=== PATIENT | female | born 1960 | race Hispanic/Latino ===

== ENCOUNTER 2021-07-11 03:28 | Inpatient (IN) | payer OTHER ==
--- OUTSIDE RECORDS SUMMARY | 2021-07-11 03:31 | XMS REPORT | Continuity of Care Document ---
:1960 Author Organization [facility] t Address [address] [place] [address] Care Team Providers Name Role Phone Bubba CARCAMO Attending Clinician Unavailable Payers Payer Name Policy Type Policy Number Effective Date Expiration Date Nicole agarwal [employer] [id number] 2020 00:00:00 SELECT Problems This patient has no known problems. Allergies, Adverse Reactions, Alerts Allergy Allergy Status Severity Reaction(s) Onset Inactive Treating Comm ents Source Name Type Date Date Clinician NO KNOWN Drug Active [facility] Medications This patient has no known medications. Procedures This patient has no known procedures. Encounters Start End Encounter Admission Attending Care Care Encounter Source Date/Time Date/Time Type Type Clinicians Facility Department ID 2020-08-06 2020-08-06 [facility] [id number] [facility] 09:50:00 09:50:00 [facility] [id number] [facility] 2020-08-06 2020-08-06 Outpatient Antonio CARCAMO [facility] [id number] Univers 09:50:00 09:50:00 [facility] 2020-06-10 2020-06-10 Outpatient [facility] [id number] Univers 15:15:00 15:15:00 [id number] [facility] Results This patient has no known results.
[2021-07-11] MEDS ORDERED: ONDANSETRON 4 MG/2 ML VIAL ONE (04:04)
[2021-07-11] MEDS ORDERED: HYDROMORPHONE HCL 1 MG/ML INJ ONE (04:04)
[2021-07-11 04:08] LABS: Absolute Lymphocytes (CBC) 2.7 K/uL (0.7-4.9); Hematocrit 40.6 % (36.0-45.0); Lymphocytes % 33.6 % (15.3-44.8); MPV 6.8 fL (7.6-11.3); RBC Red Blood Cell Count 4.37 M/uL (3.86-4.86)
[2021-07-11 04:30] LABS: Albumin 3.4 g/dL (3.4-5.0); Bilirubin Direct 0.2 mg/dL (0-0.2); Bilirubin Total 0.4 mg/dL (0.2-1.0); Potassium 3.3 mmol/L (3.5-5.1); Protein, Total 7.2 g/dL (6.4-8.2); Troponin High Sensitivity 6.2 pg/mL (<58.9)
[2021-07-11 06:16] LABS: Urine Blood Negative (Negative); Urine Glucose Negative (Negative); Urine Protein Negative (Negative)
[2021-07-11 06:27] LABS: Urine Bacteria <20 /HPF (<20); Urine RBC <5 /HPF (NONE SEEN)
[2021-07-11] MEDS ORDERED: PIPERACIL/TAZO 3.375 GM VIAL IV ONE (06:37)
[2021-07-11] MEDS ORDERED: NA CHLORIDE 0.9% 100 ML IV ONE (06:38)
--- NOTE | 2021-07-11 06:44 | ER ---
Nurse's Notes [facility] Name: Zoë Vieira Age: 61 yrs Sex: Female : 1960 Arrival Date: 07/11/2021 Time: 03:29 Bed 17 Private MD: Diagnosis: Acute cholecystitis Presentation: 07/11 03:45 Chief complaint: Patient states: C/o sharp abdominal pain, N/V since midnight. ll3 Coronavirus screen: Vaccine status: Patient reports receiving the 2nd dose of the covid vaccine. Ebola Screen: No symptoms or risks identified at this time. Initial Sepsis Screen: Does the patient meet any 2 criteria? No. Patient's initial sepsis screen is negative. Does the patient have a suspected source of infection? No. Patient's initial sepsis screen is negative. Risk Assessment: Do you want to hurt yourself or someone else? Patient reports no desire to harm self or others. Onset of symptoms was July 10, 2021 at 00:00. 03:45 Method Of Arrival: Ambulatory 3 03:45 Acuity: ANOOP 3 ll3 Triage Assessment: 03:47 General: Appears in no apparent distress. uncomfortable, Behavior is calm, cooperative. ll3 Pain: Complains of pain in abdomen Pain currently is 10 out of 10 on a pain scale. Quality of pain is described as stabbing, Pain began 4 hours ago. Is continuous. Neuro: Level of Consciousness is awake, alert, obeys commands, Oriented to person, place, time, situation. Cardiovascular: Patient's skin is warm and dry. Respiratory: Respiratory effort is even, unlabored, Respiratory pattern is regular, symmetrical. GI: Abdomen is round distended, Last BM was July 10, 2021. Bowel sounds present X 4 quads. Abd is soft and non tender X 4 quads. Reports lower abdominal pain, upper abdominal pain, indigestion, nausea, vomiting. Derm: Skin is pink, warm \T\ dry. Historical: - Allergies: 03:47 Codeine; ll3 - Home Meds: 03:47 levothyroxine 175 mcg oral tab [Active]; simvastatin 40 mg Oral tab 1 tab once daily ll3 [Active]; gabapentin 100 mg oral tab twice a day [Active]; - PMHx: 03:47 High Cholesterol; Hypothyroidism; ll3 - PSHx: 03:47 None; ll3 - Immunization history:: Client reports receiving the 2nd dose of the Covid vaccine. - Social history:: Smoking status: Patient denies any tobacco usage or history of. Screenin:52 Abuse screen: Denies threats or abuse. Nutritional screening: No deficits noted. ll3 Tuberculosis screening: No symptoms or risk factors identified. Fall Risk IV access (20 points). Mental Status- Oriented to own ability (0 pts). Total Tang Fall Scale indicates No Risk (0-24 pts). Assessment: 03:45 General: See triage assessment. ll3 04:15 Reassessment: Patient aware of the need for a urine sample. al4 04:37 Reassessment: Patient is alert, oriented x 3, equal unlabored respirations, skin al4 warm/dry/pink. Patient sleeping but easily arousable. States the pain medication helped the pain enough for her to sleep. at bedside. 05:17 Reassessment: Patient is alert, oriented x 3, equal unlabored respirations, skin al4 warm/dry/pink. Patient is resting comfortably. Denies pain. Warm blanket given. . 06:02 Reassessment: Patient is alert, oriented x 3, equal unlabored respirations, skin al4 warm/dry/pink. 06:05 Reassessment: patient ambulated to restroom with assistance. al4 07:03 Reassessment: Patient is alert, oriented x 3, equal unlabored respirations, skin al4 warm/dry/pink. Vital Signs: 03:45 BP 127 / 109; Pulse 61; Resp 18; Temp 97.7(TE); Pulse Ox 100% on R/A; Weight 72.12 kg ll3 (R); Height 5 ft. 4 in. (162.56 cm) (R); Pain 10/10; 04:00 BP 137 / 74; Pulse 50; Resp 16; Pulse Ox 96% on R/A; Pain 7/10; al4 05:18 BP 118 / 73; Pulse 54 MON; Resp 16 S; Pulse Ox 94% on R/A; al4 06:32 BP 137 / 68; Pulse 50; Resp 16; Pulse Ox 97% on R/A; ll3 07:03 BP 120 / 82; Pulse 52; Resp 16 S; Pulse Ox 100% on R/A; al4 03:45 Body Mass Index 27.29 (72.12 kg, 162.56 cm) ll3 ED Course: 03:29 Patient arrived in ED. kc5 03:45 Corinne Sullivan MD is Attending Physician. sp3 03:47 Triage completed. ll3 03:47 Arm band placed on. ll3 03:51 Inserted saline lock: 20 gauge in left antecubital area, using aseptic technique. Blood ds4 collected. 03:52 Patient has correct armband on for positive identification. Placed in gown. Bed in low ll3 position. Call light in reach. Side rails up X 1. 04:10 Basic Metabolic Panel Sent. ll3 04:39 Placido Clemente is Primary Nurse. al4 04:39 Pulse ox on. NIBP on. al4 05:14 CT Abd/Pelvis - IV Contrast Only In Process Unspecified. EDMS 06:43 Jaida Singletary MD is Hospitalizing Provider. sp3 06:50 Surgeon paged at 06:27. eb 06:54 Surgeon paged at 06:54. eb 09:03 Primary Nurse role handed off by Placido Clemente eb 18:37 No provider procedures requiring assistance completed. Patient admitted, IV remains in beal place. Administered Medications: 04:08 Drug: Dilaudid (HYDROmorphone) 1 mg Route: IVP; Site: left antecubital; ll3 05:19 Follow up: Response: No adverse reaction; RASS: Alert and Calm (0) al4 04:08 Drug: Zofran (Ondansetron) 4 mg Route: IVP; Site: left antecubital; ll3 05:19 Follow up: Response: No adverse reaction al4 06:45 Drug: Zosyn (piperacillin-tazobactam) 3.375 grams Route: IVPB; Infused Over: 60 mins; ll3 Site: left antecubital; 07:22 Follow up: IV Status: Completed infusion beal Outcome: 06:43 Decision to Hospitalize by Provider. sp3 18:37 Admitted to Med/surg beal 18:37 Condition: good 18:37 Instructed on the need for admit. 18:38 Patient left the ED. beal Signatures: Dispatcher [employer] EDMS Donavon Mccray ds4 Lakeisha Jarrett eb Corinne Sullivan MD MD sp3 Ailyn Dickson RN RN ll3 Chikis Riley kc5 Placido Clemente al4 Au-StagerJudith RN RN beal Corrections: (The following items were deleted from the chart) 04:39 04:37 Reassessment: Patient is alert, oriented x 3, equal unlabored respirations, skin al4 warm/dry/pink. Patient sleeping but easily arousable. States the pain medication helped the pain enough for her to sleep.. al4
--- NOTE | 2021-07-11 06:44 | EDPHYS ---
Physician Documentation [facility] Name: Zoë Vieira Age: 61 yrs Sex: Female : 1960 Arrival Date: 07/11/2021 Time: 03:29 Bed 17 Private MD: ED Physician Corinne Sullivan HPI: 07/11 03:54 This 61 yrs old Female presents to ER via Ambulatory with complaints of sp3 Abdominal Pain. 03:54 Is a 1-year-old female with history of hyperlipidemia, hypothyroidism presents to the [facility] ED for a 4-hour history of epigastric pain radiating to the right upper quadrant which started approximately midnight associated with nausea and one episode of emesis. Patient is a patient of Dr. Singletary, has had no surgical procedures in the abdomen and chest, and on review of systems denies headache, neck pain, chest pain, shortness of breath, diarrhea, extremity pain, syncope, neuro symptoms, travel history, known sick contacts, change in medications, or any other symptoms at this time. Pain is described as sharp and waxing and waning and continues to be present in the ED currently.. Historical: - Allergies: 03:47 Codeine; ll3 - Home Meds: 03:47 levothyroxine 175 mcg oral tab [Active]; simvastatin 40 mg Oral tab 1 tab once daily ll3 [Active]; gabapentin 100 mg oral tab twice a day [Active]; - PMHx: 03:47 High Cholesterol; Hypothyroidism; ll3 - PSHx: 03:47 None; ll3 - Immunization history:: Client reports receiving the 2nd dose of the Covid vaccine. - Social history:: Smoking status: Patient denies any tobacco usage or history of. ROS: 03:57 Constitutional: Negative for fever, chills, and weight loss, Eyes: Negative for injury, sp3 pain, redness, and discharge, ENT: Negative for injury, pain, and discharge, Neck: Negative for injury, pain, and swelling, Cardiovascular: Negative for chest pain, palpitations, and edema, Respiratory: Negative for shortness of breath, cough, wheezing, and pleuritic chest pain, Back: Negative for injury and pain, MS/Extremity: Negative for injury and deformity, Skin: Negative for injury, rash, and discoloration, Neuro: Negative for headache, weakness, numbness, tingling, and seizure, Psych: Negative for depression, anxiety, suicide ideation, homicidal ideation, and hallucinations, Allergy/Immunology: Negative for hives, rash, and allergies, Endocrine: Negative for neck swelling, polydipsia, polyuria, polyphagia, and marked weight changes, Hematologic/Lymphatic: Negative for swollen nodes, abnormal bleeding, and unusual bruising. 03:57 All other systems are negative. Exam: 03:57 Constitutional: This is a well developed, well nourished patient who is awake, alert, sp3 and in no acute distress. Head/Face: Normocephalic, atraumatic. Eyes: Pupils equal round and reactive to light, extra-ocular motions intact. Lids and lashes normal. Conjunctiva and sclera are non-icteric and not injected. Cornea within normal limits. Periorbital areas with no swelling, redness, or edema. Neck: Trachea midline, no thyromegaly or masses palpated, and no cervical lymphadenopathy. Supple, full range of motion without nuchal rigidity, or vertebral point tenderness. No Meningismus. Chest/axilla: Normal chest wall appearance and motion. Nontender with no deformity. No lesions are appreciated. Cardiovascular: Regular rate and rhythm with a normal S1 and S2. No gallops, murmurs, or rubs. Normal PMI, no JVD. No pulse deficits. Respiratory: Lungs have equal breath sounds bilaterally, clear to auscultation and percussion. No rales, rhonchi or wheezes noted. No increased work of breathing, no retractions or nasal flaring. Skin: Warm, dry with normal turgor. Normal color with no rashes, no lesions, and no evidence of cellulitis. MS/ Extremity: Pulses equal, no cyanosis. Neurovascular intact. Full, normal range of motion. Neuro: Awake and alert, GCS 15, oriented to person, place, time, and situation. Cranial nerves II-XII grossly intact. Motor strength 5/5 in all extremities. Sensory grossly intact. Cerebellar exam normal. Normal gait. Psych: Awake, alert, with orientation to person, place and time. Behavior, mood, and affect are within normal limits. 03:57 Abdomen/GI: Right upper quadrant pain as well as epigastric pain on palpation without peritoneal signs, rebound, or guarding. Bowel sounds are normal. Positive Colbert sign on exam.. 06:44 ECG was reviewed by the Attending Physician. EKG demonstrates sinus bradycardia at 50 sp3 bpm with normal intervals, normal axis, normal QRS, normal ST/T changes without evidence of ischemia. Vital Signs: 03:45 BP 127 / 109; Pulse 61; Resp 18; Temp 97.7(TE); Pulse Ox 100% on R/A; Weight 72.12 kg ll3 (R); Height 5 ft. 4 in. (162.56 cm) (R); Pain 10/10; 04:00 BP 137 / 74; Pulse 50; Resp 16; Pulse Ox 96% on R/A; Pain 7/10; al4 05:18 BP 118 / 73; Pulse 54 MON; Resp 16 S; Pulse Ox 94% on R/A; al4 06:32 BP 137 / 68; Pulse 50; Resp 16; Pulse Ox 97% on R/A; ll3 07:03 BP 120 / 82; Pulse 52; Resp 16 S; Pulse Ox 100% on R/A; al4 03:45 Body Mass Index 27.29 (72.12 kg, 162.56 cm) ll3 MDM: 03:45 Patient medically screened. sp3 03:58 Data reviewed: vital signs, nurses notes. ED course: [id number] female with sp3 abdominal pain. Differential diagnosis includes, cholelithiasis, pancreatitis, acute coronary syndrome, gastritis, nonspecific functional abdominal pain. Will differentiate with CT scan of the abdomen/pelvis, laboratory values, EKG, and administer pain and nausea medication for patient's symptoms. Disposition based on work-up and patient course.. 06:42 ED course: CT evidence of acute cholecystitis. Discussed with Dr. Singletary who wants sp3 patient admitted and the on-call surgeon consulted Dr. Schofield. Discussed with patient who is okay with the plan. Zosyn IV has been given. Patient to remain n.p.o. posted to Dr. Singletary's service.. 07/11 03:57 Order name: Basic Metabolic Panel sp3 07/11 03:57 Order name: CBC with Diff; Complete Time: 06:23 sp3 07/11 03:57 Order name: Hepatic Function; Complete Time: 06:23 sp3 07/11 03:57 Order name: Lipase; Complete Time: 06:23 sp3 02/04 03:57 Order name: UA MICROSCOPIC; Complete Time: 06:44 sp3 07/11 03:57 Order name: CT Abd/Pelvis - IV Contrast Only sp3 07/11 03:57 Order name: Troponin HS; Complete Time: 06:23 sp3 07/11 03:57 Order name: Basic Metabolic Panel; Complete Time: 06:23 EDMS 07/11 04:33 Order name: COVID-19 SARS RT PCR (Document "Date of Onset" if Symptomatic); Complete cs9 Time: 06:23 07/11 06:16 Order name: Urine Dipstick-Ancillary; Complete Time: 06:23 EDMS 07/11 11:22 Order name: Troponin High Sensitivity EDMS 07/11 11:25 Order name: US EDMS 07/11 11:44 Order name: Basic Metabolic Panel EDMS 07/11 03:57 Order name: IV Saline Lock; Complete Time: 03:59 sp3 07/11 03:57 Order name: Labs collected and sent; Complete Time: 04:00 sp3 07/11 03:57 Order name: Urine Dipstick-Ancillary (obtain specimen); Complete Time: 06:54 sp3 07/11 03:57 Order name: NPO; Complete Time: 04:10 sp3 07/11 03:57 Order name: EKG - Nurse/Tech; Complete Time: 04:10 sp3 07/11 06:40 Order name: NPO EDMS 07/11 12:17 Order name: Diet Clear Liquid; Complete Time: 12:18 beal 07/11 12:26 Order name: MRI EDMS 07/11 12:36 Order name: MRI EDMS Administered Medications: 04:08 Drug: Dilaudid (HYDROmorphone) 1 mg Route: IVP; Site: left antecubital; ll3 05:19 Follow up: Response: No adverse reaction; RASS: Alert and Calm (0) al4 04:08 Drug: Zofran (Ondansetron) 4 mg Route: IVP; Site: left antecubital; ll3 05:19 Follow up: Response: No adverse reaction al4 06:45 Drug: Zosyn (piperacillin-tazobactam) 3.375 grams Route: IVPB; Infused Over: 60 mins; ll3 Site: left antecubital; 07:22 Follow up: IV Status: Completed infusion beal Disposition Summary: 07/11/21 06:43 Hospitalization Ordered Hospitalization Status: Observation sp3 Provider: Jaida Singletary Condition: Stable sp3 Problem: new sp3 Symptoms: have improved sp3 Bed/Room Type: Standard sp3 Location: Telemetry/MedSurg (observation)(07/11/21 17:18) eb Room Assignment: 228(07/11/21 17:18) eb Diagnosis - Acute cholecystitis sp3 Forms: - Medication Reconciliation Form sp3 - SBAR form sp3 Signatures: Dispatcher [employer] EDMS Lakeisha Jarrett Setul, MD MD sp3 Ailyn Dickson RN RN 3 Placido Clemente Heather RN ha Corrections: (The following items were deleted from the chart) 05:15 03:58 URINALYSIS+U.LAB.BRZ ordered. EDMS EDMS 08:15 06:43 sp3 eb 09:20 06:43 Telemetry/MedSurg (observation) sp3 eb 09:20 08:15 208 eb eb 17:18 09:20 [facility] ER HOLD eb eb 17:18 09:20 ERHOLD- eb eb
--- NOTE | 2021-07-11 08:43 | HP ---
Date of Admission: 07/11/2021 WILTON/MODL Voice ID: [id number] MTDD
[2021-07-11] MEDS ORDERED: ONDANSETRON 4 MG/2 ML VIAL IV PRN (10:12)
[2021-07-11] MEDS ORDERED: SODIUM CHLORIDE 0.9% 10ML INJ IV PRN (10:12)
[2021-07-11] MEDS ORDERED: PANTOPRAZOLE 40 MG INJ IVP ONE (10:12)
[2021-07-11] MEDS ORDERED: MORPHINE 2 MG/ML SYR IV PRN (10:12)
[2021-07-11] MEDS: D5 0.9 NS 1,000 ML IV SCH (11:00)
[2021-07-11] MEDS: Levofloxacin 750mg IV 750 MG/150 ML BAG IV SCH (11:00)
[2021-07-11] MEDS ORDERED: Levofloxacin500mg IV 500 MG/100 ML BAG IV SCH (11:00)
[2021-07-11] MEDS ORDERED: PANTOPRAZOLE 40 MG INJ ONE (11:18)
[2021-07-11] MEDS ORDERED: Levofloxacin 750mg IV 750 MG/150 ML BAG IV ONE (11:19)
[2021-07-11] MEDS ORDERED: D5 0.9 NS 1,000 ML IV ONE (11:19)
--- NOTE | 2021-07-11 11:24 | RAD REPORT ---
EXAM DESCRIPTION: US - Abdomen Exam Limited - 07/11/2021 11:16 am CLINICAL HISTORY: abd pain COMPARISON: Abdomen Pelvis W Contrast dated 07/11/2021 FINDINGS: The gallbladder demonstrates shadowing gallstones. Pericholecystic fluid is present. The g allbladder wall is normal. The common bile duct is normal measuring 3 mm. The liver demonstrates no findings of intrahepatic biliary dilatation. The right kidney measures 10.7 cm. No hydronephrosis. IMPRESSION: Cholelithiasis. Pericholecystic fluid identified but no gallbladder wall thickening. Acu te cholecystitis can neither be confirmed nor excluded based on this exam.
[2021-07-11 11:44] LABS: Potassium 3.7 mmol/L (3.5-5.1)
--- NOTE | 2021-07-11 11:48 | RAD REPORT ---
EXAM DESCRIPTION: CT - Abdomen Pelvis W Contrast - 07/11/2021 6:29 am CLINICAL HISTORY: ABD PAIN COMPARISON: None. TECHNIQUE: CT ABDOMEN PELVIS WITH IV CONTRAST on 07/11/2021 3:57 AM COMMUNICATIONS TECHNOLOGIST This exam was performed according to our departmental dose-optimization program, which includes autom ated exposure control, adjustment of the mA and/or kV according to patient size and/or use of iterati ve reconstruction technique. FINDINGS: Lower lungs are clear. Abdomen: The liver is normal in appearance. There is no biliary dilatation. Gallbladder wall is minim ally thickened measuring up to 5 mm laterally. There is a small gallstone within the gallbladder. The pancreas and spleen are normal in appearance. The adrenal glands and kidneys are unremarkable. Abdominal aorta is normal in course and caliber without aneurysm. There is no free air. There is no r etroperitoneal adenopathy. Pelvis: There is no bowel obstruction. Urinary bladder is unremarkable. There is no free fluid. Uteru s is normal in size. Appendix is not well seen. Skeleton: There are no acute osseous findings. No suspicious bony lesions. IMPRESSION: Suspect acute cholecystitis. Electronically signed by: Antione Zheng MD 07/11/2021 6:07 AM COMMUNICATIONS TECHNOLOGIST Due to temporary technical issues with the PACS/Fluency reporting system, reports are being signed by the in house radiologists without review as a courtesy to insure prompt reporting. The interpreting radiologist is fully responsible for the content of the report.
--- NOTE | 2021-07-11 12:24 | RAD REPORT ---
EXAM DESCRIPTION: MRI - Lumbar Spine Patience Delgado - 07/11/2021 12:05 pm CLINICAL HISTORY: Right-sided radiculopathy COMPARISON: None. TECHNIQUE: Sagittal T1-weighted, T2-weighted and T2-STIR weighted sequences were obtained. Axial T1 -weighted and heavily T2-weighted sequenceswere obtained through the lumbar disc levels. FINDINGS: Lumbar bodies are normal in height and alignment. No suspicious marrow signal. No paraspin al masses. Conus is normal with no clumping or thickening of the cauda equina. T12-L1 level: No significant findings. L1-2 level: Right foraminal/lateral disc protrusion which contacts the exiting right L1 nerve root. N o central spinal stenosis. The left neural foramen is adequate. L2-3 level: Small broad-based disc bulge in conjunction with ligamentum flavum and facet hypertrophy is not result in any significant neural foraminal narrowing. No central spinal stenosis. L3-4 level: Broad-based disc bulge with ligamentum flavum and facet hypertrophy results in mild to mo derate right neural foraminal narrowing. Moderate central spinal stenosis. L4-5 level: Broad-based disc bulge with ligamentum flavum facet hypertrophy results in mild bilateral neural foraminal narrowing. No central spinal stenosis. L5-S1 level: No significant findings. IMPRESSION: Multilevel degenerative disc disease. Moderate central spinal stenosis is noted at L3-4 as result of a combination of degenerative changes. Mild to moderate right-sided neural foraminal norma rowing is noted at L3-4. In addition, a moderate sized right foraminal/lateral disc protrusion at L1- 2 encroaches on the right L1 nerve root and could also explain a radiculopathy.
--- NOTE | 2021-07-11 12:35 | RAD REPORT ---
EXAM DESCRIPTION: MRI - C Spine Wo Cont - 07/11/2021 12:05 pm CLINICAL HISTORY: cervical radiculopathy COMPARISON: MRI CERVICAL SPINE W WO CON dated 07/27/2012 TECHNIQUE: Sagittal T1-weighted, T2-weighted and T2-STIR sequences were obtained as well as axial T2 medic sequence obtained. FINDINGS: Cervical vertebral bodies are normal in height and alignment. No suspicious marrow edema o r marrow replacing process. Cerebellar tonsils and mid-line skull base show no suspicious finding. No significant finding at the C1 and C2 levels. C2-3 level: Uncovertebral joint hypertrophy on the left side results in moderate left neural foramina l narrowing. No central spinal stenosis. The right neural foramen is adequate. C3-4 level: Uncovertebral joint hypertrophy results in severe left neural foraminal narrowing. No michael tral spinal stenosis. The right neural foramen is adequate. C4-5 level: No significant findings. C5-6 level: Posterior disc osteophyte complex with uncovertebral joint hypertrophy and right-sided pa racentral disc protrusion results in mild to moderate left and mild right neural foraminal narrowing. There is some contact along the right aspect of the spinal cord. These findings are unchanged since 2012. Overall, the central spinal stenosis is likely not clinically significant. C7-T1 level: No significant findings. Cervical cord shows no focal narrowing, expansion or signal abnormality. IMPRESSION: Progression of degenerative changes at the uncovertebral joints at C2-3 and C3-4 resulti ng in left-sided neural foraminal narrowing that could be clinically significant. The right paracentr al disc protrusion at C5-6 is again identified and results in increased right neural foraminal narrow ing that is mild to moderate.
--- NOTE | 2021-07-11 17:52 | CON ---
Date of Consultation: 07/11/2021 Date Of Procedure: 07/11/2021. Chief Complaint: Abdominal pain. History Of Present Illness: Patient is a 61-year-old female, who awoke in the middle of the night wi th acute onset of epigastric pain associated with heartburn, bloating, belching, and then the pain mo chad to the right upper quadrant. Denies any diarrhea or constipation. No blood in her stool. No dy suria or hematuria. No sore throat, runny nose, cough, headaches, or dizziness and no chest pain. N o fever or chills. She does, however, have left arm occasional numbness and left anterior wall pinpo int tenderness lasting for about a minute or so. She also has lower back pain that goes down back of her thigh. Review of Systems: Otherwise unremarkable. Past Medical History: Significant for hypothyroidism, obstructive sleep apnea, hypertension, hyperli pidemia, and lumbar radiculopathy. Past Surgical History: Cataract surgery, D and C, and left foot surgery. Allergies: CODEINE. Social History: The patient does not smoke, drink alcohol occasionally. Family History: Significant for father with lung cancer; mother with hypertension, diabetes, and hyp erlipidemia; sister with hypertension and diabetes as well. Physical Examination: Vital signs: Stable. She is afebrile. Blood pressure is a little bit low at 97/59. General: She is awake, alert, and oriented x3. Head and neck: Cranial nerves 2 through 12 are grossly within normal limits. No neck masses. No JV D. Throat clear. Neck supple. Chest: Clear. Heart: S1, S2. Abdomen: Soft. Positive tenderness in the right upper quadrant epigastric region. No rebound, rigi dity, or guarding. Extremities: Adequately perfused. Nontender. Neuro: Nonfocal. Laboratory Data: White count is 8.10. Chemistry reviewed. LFTs are within normal limits. Otherwis e, it is unremarkable. Troponin is within normal limits and EKG shows bradycardia. Patient had a caleb mbar and cervical spine MRI done, which shows significant degenerative disease in both places as deta iled in the reports. The patient had an abdominal ultrasound, which shows cholelithiasis with some f luid around the gallbladder. However, there is no gallbladder wall thickening. So, it is radiograph ically an indeterminate report for acute cholecystitis. However, on the CAT scan, she does have evid ence of subacute cholecystitis with cholelithiasis. Assessment: A 61-year-old female with acute cholecystitis and cholelithiasis. Plan: Await cardiac clearance as Dr. Singletary has requested and then we will proceed with a laparoscopic cholecystectomy, possible open. The patient understands the risks, benefits, and alternatives and a grees to procedure. Please note, I discussed the case in detail with Dr. Singletary. /KATHY Voice ID: [id number] Report ID: [id number]
[2021-07-11 21:22] VITALS: BMI 27.1
[2021-07-11 22:09] LABS: Magnesium 1.8
--- NOTE | 2021-07-12 00:13 | HP ---
Date of Admission: 07/11/2021 Chief Complaint: Abdominal pain, nausea, vomiting. History Of Present Illness: This is a 61-year-old female patient who went to bed last night feeling fine, and then sometime around midnight she started to have epigastric and right upper quadrant pain and subsequently had nausea, vomiting. She came into the emergency room with this. Denies any fever or chills. After she came into ER, she was evaluated and admitted to the hospital with acute cholecystitis problem. When I saw her this morning, she was in the emergency room. Overall, abdominal pain was better with the pain medication. The patient recently saw me about 2 weeks ago with her lower back pain radiating to the right leg, and she was started on prednisone and unfortunately she tells me that prednisone has not helped her at all, and she still continues to have significant pain in her lower back radiating to her leg. She had x-ray of the lumbar spine and right hip x-ray. Hip x-ray was negative. Lumbar spine x-ray had shown some changes of osteoarthritis. She also tells me that she has chronic neck pain, and in the past a few years ago she had seen Dr. Kenyon in [place], and no surgical intervention was suggested by him, but she has been having chronic neck pain. Today, it is the first time she informed me that she had approximately 4 to 5 episodes of chest pain in the left upper anterior chest wall area describing as pulling or muscle tightening-type of sensation, lasting for 1 to 2 minutes and this is associated with left upper extremity numbness feeling that lasts for a few minutes. This happens mostly at night, but it has happened sometime during day time also. No relation with any activity. No associated nausea or shortness of breath. Allergies: TO CODEINE. Medications: 1. Atorvastatin 40 mg daily at bedtime. 2. Aspirin 81 mg daily. 3. Caltrate plus D daily. 4. Levothyroxine 175 mcg daily. 5. Linzess daily. 6. Gabapentin 100 mg 2 times a day. Review of Systems: GI: As mentioned above. All other systems reviewed and negative. Past Medical History: Significant for hypothyroidism, obstructive sleep apnea, hypertension, hyperlipidemia, and lumbar radiculopathy. Past Surgical History: Cataract surgery, D and C, and left foot surgery. Family History: Father , had lung cancer. Mother has hypertension, diabetes, hyperlipidemia. Sister with hypertension, diabetes, and hyperlipidemia. Social History: Negative for smoking. Use of alcohol, occasional. Immunization History: Patient had her COVID-19 vaccine with Moderna; first dose is July 09, 2020, second dose August 06, 2020, and booster dose May 22, 2021. Physical Examination: VITAL SIGNS: Pulse 56, respiratory rate 16, blood pressure 97/59. General: Awake, alert, oriented, not in distress. HEENT: Head atraumatic, normocephalic. Conjunctivae nonerythematous. Sclerae white. Mouth, no thrush or edema noted. Ears/Nose, no mass, lesion, discharge noted. Neck: Supple. No JVD, lymph nodes, bruit, thyromegaly noted. Lungs: Bilateral good equal air entry. Clear to auscultation. No rhonchi. No rales. Heart: Normal heart sounds, no murmur or gallop. Abdomen: Soft, bowel sounds normal. No guarding, rigidity, mass, hepatosplenomegaly, distention, or bruit noted. Has tenderness in RUQ. Extremities: No leg edema. No calf tenderness. Skin: No rash, ulcer, cellulitis. Lymphatics: No lymph node enlargement in neck, supraclavicular, infraclavicular region. Neuro: No focal neurological deficit. Chest: Unremarkable. External Genitalia: Deferred. Rectal: Deferred. Laboratory Data: Sodium 139, potassium 3.3, chloride 105, bicarb 28, BUN 15, creatinine 0.76, glucose 110. Liver function tests unremarkable. Lipase 165. White count 8.1, hemoglobin 13.5. Urinalysis; 2+ esterase, otherwise negative. COVID-19 test negative. CAT scan of the abdomen and pelvis results reviewed. After I saw her, an abdominal ultrasound was ordered, and it showed the presence of gallstone and pericholecystic fluid. I also ordered MRI of cervical spine and MRI of lumbar spine, and it shows significant degenerative changes with bulging disk, foraminal stenosis at different levels. Impression: 1. Acute cholecystitis. 2. Cervical spondylosis with radiculopathy. 3. Lumbar spondylosis with radiculopathy. 4. Osteoarthritis, at multiple sites. 5. Chest pain. Plan: We will admit the patient to the hospital for further evaluation and management of this problem. The patient is appropriate for inpatient and is expected to spend 2 midnights in the hospital. We will go ahead and keep her n.p.o. right now. IV fluid D5 normal saline was started. We will start her on IV antibiotic Levaquin 500 mg daily. Her chest pain appears to be atypical in nature. EKG was normal. I will request consultation from the ranch hand supervisor for preop clearance, and I have called and discussed details with ranch hand supervisor, Dr. Sanchez. I have also communicated with general surgeon, Dr. Chandu grubbs as well. Planning for surgery tomorrow and MRI result was available after I saw her, so I will communicate with her regarding the results of MRI, and I will request her to have a followup with a neurosurgeon on an outpatient basis and will assist her with appropriate referral. SCD was ordered for DVT prophylaxis. WILTON/MODL Voice ID: [id number] BRITNI
[2021-07-12] MEDS: D5 0.9 NS 1,000 ML IV SCH ×3 (00:20→20:17)
[2021-07-12] MEDS ORDERED: PANTOPRAZOLE 40 MG INJ IVP SCH (09:00)
[2021-07-12] MEDS: Levofloxacin 750mg IV 750 MG/150 ML BAG IV SCH (10:30)
[2021-07-12] MEDS: Ringers Lactate 1,000 ML IV ONE ×2 (10:59→11:01)
[2021-07-12] MEDS ORDERED: MIDAZOLAM HCL 2 MG/2 ML INJ ONE (11:49)
[2021-07-12] MEDS ORDERED: propofoL 200 MG/20 ML VIAL IV ONE (11:49)
[2021-07-12] MEDS ORDERED: FENTANYL CITR 100 MCG/2 ML ONE (11:49)
[2021-07-12] MEDS ORDERED: SUCCINYLCHOLINE 20 MG/ML (10 ML) IV ONE (11:55)
[2021-07-12] MEDS ORDERED: BUPIVACAINE 0.5% PF 10 ML VIAL ONE (11:56)
[2021-07-12] MEDS ORDERED: ROCURONIUM 50 MG/5 ML VIAL IV ONE (11:59)
[2021-07-12] MEDS ORDERED: ONDANSETRON 4 MG/2 ML VIAL ONE (13:21)
[2021-07-12] MEDS ORDERED: dexAMETHasone 10 MG/ML VIAL ONE (13:21)
[2021-07-12] MEDS ORDERED: GLYCOPYRROLATE 0.2 MG/ML SYR ONE (13:26)
[2021-07-12] MEDS ORDERED: NEOSTIGMINE 1 MG/ML -5 ML ONE (13:27)
[2021-07-12] MEDS ORDERED: KETOROLAC 30 MG/ML INJ ONE (13:53)
--- NOTE | 2021-07-12 13:56 | P.OP ---
Dining Car Waiter/Waitress: NONE,NONE Preoperative diagnosis: Acute Cholecystitis and Cholelithiasis Postoperative diagnosis: same Primary procedure: Lap Adrianna Anesthesia: General Estimated blood loss: min Specimen: GB Findings: as above Complications: None Transferred to: Recovery Room Condition: Good
[2021-07-12] MEDS ORDERED: TRAMADOL 37.5mg/APAP 325mg PER TAB PO PRN (13:58)
[2021-07-12] MEDS ORDERED: ONDANSETRON 4 MG/2 ML VIAL IV PRN (14:02)
--- NOTE | 2021-07-12 19:34 | CON ---
Date of Consultation: 07/11/2021 Reason For Admission: Admitted to Dr. Singletary with cholecystitis. Reason For Consultation: Atypical chest pain and cardiac clearance. History Of Present Illness: Ms. Vieira is a 61-year-old Latin-Congolese woman. She came in with acute cholecystitis. There is a plan for cholecystectomy. She complained of some atypical pulling s ensation in the left upper chest with some numbness in the left arm that are not together. She has a numbness separately and it radiates from her upper shoulder to the left hand. Her chest pain and pu lling sensation last seconds without any nausea, vomiting, diaphoresis, PND, orthopnea, pedal edema, palpitations, or syncope. Her symptoms are not exertional. Past Medical History: Include high cholesterol and hypothyroidism. Allergies: SHE IS ALLERGIC TO CODEINE. Review of Systems: Negative. Social History: Negative. Family History: Negative. Medications: At home include levothyroxine, simvastatin, and gabapentin. Physical Examination: Vital Signs: Stable, afebrile. She weighed 159 pounds. Blood pressure 137/68. She is in sinus bra dycardia at 56. HEENT: Exam is negative. Neck: Supple, no bruit. Chest: Clear to auscultation and percussion. Cardiac: Exam revealed a regular rhythm and rate. No murmurs, gallops, or rubs. Abdomen: Benign. Extremities: Revealed no clubbing, cyanosis, or edema. Diagnostic Data: Unremarkable. She was COVID-19 negative. Potassium was 3.3. Her abdomen and pelv ic CT scan showed were positive for acute cholecystitis. Impression And Plan: Very atypical chest pain that I think is more related to either a PVC or PAC. I think, her left arm pain is secondary to cervical spondylosis. She does have some risk factors inc luding her age and dyslipidemia. I think, she is clear for surgery from my standpoint. I think, she needs to have an outpatient echocardiogram and an MPI, and I will make arrangements for that as an o utpatient. Her hypothyroidism is being treated with levothyroxine. I will follow the patient on an as-needed basis postoperatively if the need arises. The case was discussed with Dr. Singletary. STEPHAN/KATHY Voice ID: [id number] Report ID: [id number]
[2021-07-12] MEDS: HYDROMORPHONE HCL 1 MG/ML INJ IV PRN (20:12)
--- NOTE | 2021-07-12 23:33 | PN ---
Date of Progress Note: 07/12/2021 Subjective: The patient was seen this morning for followup. She was lying in bed not in distress. Continues to have some abdominal pain but no other complaints reported. Objective: Vital Signs: Reviewed. HEENT: Examination unremarkable. Lungs: Clear to auscultation. Heart: Heart sounds normal. Abdomen: Soft. Bowel sounds normoactive. No guarding, rigidity, or distention. Mild right upper q uadrant tenderness present. No rebound tenderness. Extremities: No leg edema. Impression: 1.Acute cholecystitis. 2.Cervical spondylosis with radiculopathy. 3.Lumbar spondylosis with radiculopathy. Plan: We will go ahead and continue current medication. Patient will have laparoscopic cholecystect ishmael with Dr. Schofield today. Dr. Sanchez from Cardiology evaluated her yesterday and informed me that f rom his point of view the patient can undergo gallbladder surgery as planned, and the patient's chest pain is atypical in nature, and he will pursue elective stress test on outpatient basis. The patien t is aware of this recommendation today. I have also discussed with her regarding her MRI results of cervical spine and lumbar spine, and I have informed her that an elective outpatient basis I will re lauro her to neurosurgeon in [place] for further evaluation and management of this problem. I will see her tomorrow for followup, possible discharge to go home tomorrow. WILTON/MODL Voice ID: [id number] Report ID: [id number]
[2021-07-13] MEDS: D5 0.9 NS 1,000 ML IV SCH ×3 (03:00→18:19)
--- NOTE | 2021-07-13 06:00 | OP ---
Date of Procedure: 07/12/2021 Surgeon: Rohit Schofield MD Interpreter And Translator: None. Preoperative Diagnosis: Acute cholecystitis and cholelithiasis. Postoperative Diagnosis: Acute cholecystitis and cholelithiasis. Procedure: Laparoscopic cholecystectomy. Estimated Blood Loss: Minimal. Specimen: Gallbladder. Finding: As above. Anesthesia: General. Complications: None. Patient tolerated the procedure in stable condition, and taken to Recovery in good general condition. Description Of Procedure: The patient was brought to the OR and placed in supine position. General anesthesia given. The patient prepped and draped in the usual sterile fashion. Marcaine 0.5% was in filtrated locally and then 15 blade was used to make a 1 cm infraumbilical incision, subcutaneous tis ann divided. Fascia was divided. #1 Vicryl stay suture was placed. Peritoneal cavity entered with blunt dissection. A 12 mm trocar was placed into the peritoneal cavity under direct vision. Pneumop eritoneum was established and then three 5 mm trocars were placed, one in the epigastrium just to the right of midline and two in the right subcostal region. Laparoscopy revealed a distended gallbladde r with some adhesions. Fundus retracted superiorly and adhesions taken down from the infundibulum. The infundibulum was identified and retracted inferolaterally. The cystic duct and cystic artery wer e clearly identified with blunt dissection. Clips placed. Both structures were divided. Cautery us ed to remove the gallbladder from the liver bed. Bleeding on the liver bed was controlled with caute ry. Gallbladder was retrieved through the umbilicus via an EndoCatch bag. Right upper quadrant was irrigated. Effluent was clear. No evidence of bleeding or bile leakage appreciated. Subsequently, all trocars were removed under direct vision. There was oozing noted from the epigastric trocar site which was easily cauterized. There was no further oozing noted. Subsequently, all trocars after th ey were removed and stay sutures were tied to each other to approximate the fascial defect. Subcutan eous wound was irrigated. Bleeding controlled with electrocautery. A 3-0 chromic was used to approx imate the subcutaneous tissue and closed the skin. Sterile dressing applied. Patient awakened and t aken to Recovery in good general condition. /MODL Voice ID: [id number] Report ID: [id number]
[2021-07-13 06:13] LABS: Absolute Lymphocytes (CBC) 1.5 K/uL (0.7-4.9); Hematocrit 36.8 % (36.0-45.0); Lymphocytes % 18.8 % (15.3-44.8); MPV 6.9 fL (7.6-11.3); RBC Red Blood Cell Count 3.97 M/uL (3.86-4.86)
[2021-07-13 07:46] LABS: BUN Blood Urea Nitrogen 7 mg/dL (7-18); Bicarbonate 22 mmol/L (21-32); Glucose Level 125 mg/dL (74-106); Phosphorus 3.2 mg/dL (2.5-4.9); Potassium 3.6 mmol/L (3.5-5.1); Sodium Level 141 mmol/L (136-145)
[2021-07-13] MEDS: HYDROMORPHONE HCL 1 MG/ML INJ IV PRN (09:00)
[2021-07-13] MEDS ORDERED: PANTOPRAZOLE 40 MG INJ IVP SCH (09:00)
[2021-07-13] MEDS ORDERED: TRAMADOL HCL 50 MG TAB PO PRN (10:34)
[2021-07-13] MEDS ORDERED: D5 0.9 NS 1,000 ML IV SCH (10:35)
[2021-07-13] MEDS ORDERED: ACETAMINOPHEN 500 MG TAB PO PRN (10:35)
--- NOTE | 2021-07-13 10:55 | PN ---
Date of Progress Note: 07/13/2021 Subjective: The patient is awake, alert. Tolerating her diet. Has nausea after getting the pain me dicine. Her pain is about a 5/10 right now. Objective: Her vitals are stable. She is afebrile. Abdomen: Soft. Dressings are clean, dry, and intact. Laboratory Data: Reviewed. Chemistry reviewed, essentially within normal limits. Assessment: Status post laparoscopic cholecystectomy for acute cholecystitis and cholelithiasis. Recommendations: We will monitor her today and if her nausea improves and pain is controlled, she ca n be discharged. Follow up with me in a week. Otherwise, we will keep her another day and discharge her tomorrow. Plan of care discussed with Dr. Singletary. ELIJAH/KATHY Voice ID: [id number] Report ID: [id number]
[2021-07-13] MEDS: Levofloxacin 750mg IV 750 MG/150 ML BAG IV SCH (11:29)
[2021-07-13] MEDS: ONDANSETRON 4 MG/2 ML VIAL IV PRN ×2 (11:32→16:29)
--- NOTE | 2021-07-13 11:55 | PN ---
Date of Progress Note: 07/13/2021 Subjective: The patient was seen this morning for followup. She was complaining of bad nausea when I saw her. Objective: Vital Signs: Reviewed. HEENT: Unremarkable. Lungs: Clear to auscultation. Heart: Sounds normal. Abdomen: Soft. Bowel sounds normal. No guarding, rigidity, tenderness, or distention. Extremities: No leg edema. Laboratory Data: White count 8.1, hemoglobin 12.4, platelets 263. Sodium 141, potassium 3.6, chlori de 111, bicarb 22, BUN 7, creatinine 0.63, glucose 125. Magnesium level pending. Impression: 1.Acute cholecystitis, status post laparoscopic cholecystectomy. 2.Cervical spondylosis with radiculopathy. 3.Lumbar spondylosis with radiculopathy. Plan: The patient is on IV pain medications, hydromorphone. We will discontinue that as that defini tely could contribute or cause her nausea problem right now. I will go ahead and order oral pain med ication, tramadol for moderate pain, and Tylenol for mild pain. Nausea medication and Zofran will be continued. I have encouraged her to get out of bed and ambulate. SCD is in place for DVT prophylax is. Depending on how she feels, we will decide whether we can possibly discharge her to go home late r today or tomorrow because she is reporting that she is really not feeling good this morning. I will see her tomorrow morning for foll jasper. WILTON/MODL Voice ID: [id number] Report ID: [id number]
[2021-07-13 14:53] LABS: Magnesium 1.5
--- NOTE | 2021-07-13 18:49 | RAD REPORT ---
EXAM DESCRIPTION: RAD - Abdomen W Erect - 07/13/2021 6:44 pm CLINICAL HISTORY: rule out ileus, s/p cholecystectomy Pain COMPARISON: <Comparisons> FINDINGS: The bowel gas pattern is non-obstructive. No evidence of free air or pneumatosis. No suspi cious calcifications. Mild dextroscoliosis of the lumbar spine. Cholecystectomy. IMPRESSION: Unremarkable bowel gas pattern.
[2021-07-14] MEDS: D5 0.9 NS 1,000 ML IV SCH (01:25)
[2021-07-14 06:29] LABS: Absolute Lymphocytes (CBC) 2.5 K/uL (0.7-4.9); Hematocrit 36.7 % (36.0-45.0); Lymphocytes % 31.3 % (15.3-44.8); RBC Red Blood Cell Count 3.96 M/uL (3.86-4.86)
[2021-07-14 06:50] LABS: ALT/SGPT 37 U/L (12-78); AST/SGOT 18 U/L (15-37); Albumin 2.8 g/dL (3.4-5.0); Alkaline Phosphatase 59 U/L (45-117); BUN Blood Urea Nitrogen 6 mg/dL (7-18); Bicarbonate 25 mmol/L (21-32); Bilirubin Total 0.2 mg/dL (0.2-1.0); Glucose Level 135 mg/dL (74-106); Potassium 3.2 mmol/L (3.5-5.1); Protein, Total 5.8 g/dL (6.4-8.2); Sodium Level 143 mmol/L (136-145)
[2021-07-14] MEDS ORDERED: POTASSIUM CL SA 10 MEQ TAB PO ONE (07:06)
[2021-07-14 09:26] VITALS: BP 120/65; TEMP 98.3
[2021-07-14 09:54] VITALS: O2SAT 93
--- NOTE | 2021-07-14 11:22 | PN ---
Date of Progress Note: 07/14/2021 Subjective: The patient is awake, alert. No complaint. Feels much better today and no nausea. Objective: Vital Signs: Stable, afebrile. Abdomen: Benign. Laboratory Data: Reviewed. LFTs are essentially within normal limits. Assessment: Status post lap choly. Plan: The patient cleared from discharge from a Surgery standpoint. Follow up in my office in [place] NAVA/KATHY Voice ID: [id number] Report ID: [id number]
--- NOTE | 2021-07-14 11:35 | EKG ---
Test Date: 2021-07-11 Test Time: 04:08:13 Testing And Regulating Technician: ANU MEASUREMENT RESULTS: Intervals: Rate: 54 WV: 162 QRSD: 86 QT: 430 QTc: 407 [place]: P: 67 WV: 162 QRS: 59 T: 45 INTERPRETIVE STATEMENTS: Sinus bradycardia Otherwise normal ECG Compared to ECG 09/28/2019 11:07:51 No significant changes Electronically Signed On 07-14-21 11:30:53 DIRECTOR OF INCOME TAX by Elder Sanchez
--- NOTE | 2021-07-15 06:04 | DS ---
Date of Discharge: 07/14/2021 Disposition: Discharged to go home. Physical Examination: HEENT: Unremarkable. Lungs: Clear to auscultation. Heart: Sounds normal. Abdomen: Soft. Bowel sounds normal. No guarding, rigidity, tenderness, or distention. Extremities: No leg edema. Discharge Medications And Instructions: 1.Continue all prior home medications except change gabapentin 100 mg, the patient to take 2 capsule s by mouth 2 times a day for 1 week, then 3 capsules by mouth 2 times a day to continue until she run s out of this supply, and then foreign exchange clerk to gabapentin 300 mg and the patient to take 1 capsule by mouth 2 times a day. 2.Take Tylenol 500 mg by mouth 4 times a day as needed for mild pain. 3.Take tramadol 50 mg 1 tablet by mouth 4 times a day as needed for vujnekzw-vg-wrswew pain. 4.Zofran 4 mg take 1 tablet by mouth 4 times a day as needed for nausea, vomiting. 5.Follow up at my office this week on , which is 07/17/2021 at 10 a.m., Dr. Schofield next week at his office and call his office to schedule appointment. Laboratory Data: Upon admission; white count 8.1, hemoglobin 13.5, platelets 274. Yesterday; white count 8.1, hemoglobin 12.4, platelets 263. Upon admission; sodium 139, potassium 3.3, chloride 105, bicarb 28, BUN 15, creatinine 0.76, glucose 110. Liver function tests unremarkable. Lipase 165. Ye ; sodium 141, potassium 3.6, chloride 111, bicarb 22, BUN 7, creatinine 0.63, glucose 125. Hospital Course: This is a 61-year-old very pleasant female patient, admitted to hospital with compl aints of abdominal pain, nausea, vomiting. Please see dictated H and P for more information. After the patient was evaluated in emergency room, she was admitted to hospital with acute cholecystitis. Dr. Scohfield from General Surgery was consulted. The patient initially had a CAT scan of abdomen and pe lvis that showed possibility of acute cholecystitis, so a right upper quadrant abdominal ultrasound w as done, which also showed acute cholecystitis changes. The patient recently started to have signifi cant pain in her lower back radiating to her leg with lumbar radiculopathy and she was given oral pre dnisone and gabapentin 100 mg 2 times a day was started. This medications have not helped her to con trol her pain at all. In the past, she had problem with cervical spondylosis and recently she starte d to have more pain in her neck area, radiating to her shoulder and arm with some tingling numbness o f her arm. She also has some atypical chest pain. Cardiology consultation was requested and after o btaining cardiac clearance, it was determined that her chest pain is atypical in nature. The patient had laparoscopic cholecystectomy done by Dr. Schofield. Dr. Sanchez from Cardiology Service who evaluat ed the patient informed her that she should have elective stress test on outpatient basis and the pat iehayder will follow up with him. After surgery, she remained medically stable except yesterday she had episodes of nausea, vomiting as she could not tolerate diet, and we had to keep her n.p.o. and this m orning, she is feeling much better. Denies any abdominal pain. We did obtain MRI of cervical spine and lumbar spine and it showed significant spondylosis changes in the cervical spine as well as lumba r spine with bulging disk, bone spurs and foraminal stenosis. All these findings were discussed with her and I have recommended her to follow up with neurosurgeon and I will have office assist her with the referral when she comes to see me for followup in next few days. Final Diagnoses: 1.Acute cholecystitis. 2.Cervical spondylosis with radiculopathy. 3.Lumbar spondylosis with radiculopathy. 4.Hypokalemia. 5.Chest pain, atypical. 6.Osteoarthritis, multiple sites. 7.Hyperlipidemia. 8.Hypothyroidism. 9.Hypertension. WILTON/MODL Voice ID: [id number] Report ID: [id number]
== END 2021-07-14 10:50 | disposition home or self-care (01) | DRG 419 ==
LOC: ER 03:28 → ERHOLD 06:37 → 2ND 18:02
PROVIDERS: ADMIT Internal Medicine; ATTEND Internal Medicine
PROC: 0FT44ZZ Resection of Gallbladder, Percutaneous Endoscopic Approach (ICD-10-PCS; principal; 2021-07-12 11:45)
DX: K80.00 Calculus of gallbladder with acute cholecystitis without obstruction (principal); M47.22 Other spondylosis with radiculopathy, cervical region; M47.26 Other spondylosis with radiculopathy, lumbar region; E87.6 Hypokalemia; R07.89 Other chest pain; M19.90 Unspecified osteoarthritis, unspecified site; E78.5 Hyperlipidemia, unspecified; E03.9 Hypothyroidism, unspecified; I10 Essential (primary) hypertension; Z20.822 Contact with and (suspected) exposure to COVID-19
CPT/HCPCS: 36415; 72141; 72148; 74019; 74177; 76705; 80048; 80053; 80076; 81003; 81015; 83690; 83735; 84100; 84484; 85025; 88304; 93005; 94010; 96365; 96375; 99285; C9113; J0330; J1100; J1170; J2250; J2405; J2543; J2704; J2710; J3010; J7042; J7120; Q9967; U0003